=== PATIENT | male | born 2000 | race Two or more races ===

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

== ENCOUNTER 2020-01-13 19:08 | Emergency (ER) | payer OTHER ==
--- NOTE | 2020-01-13 19:53 | ER Document Report ---
HPI - HPI Patient complains to provider of: Choking on food Time Seen by Provider: 01/13/20 19:45 Onset: This evening Onset/Duration: Gone Quality of pain: Achy Severity: None Pain Level: Denies Context: 19-year-old male presented to ED for choking on his food. He states every time he tries to drink something he has to spit it out. He states he does have a medical history of a left arm fracture. He does not smoke drink or use any drugs and he lives with his mother. Patient is able to swallow whole glass of water with no difficulty Associated Symptoms: Other - Patient was choking on food at home. He is able to speak freely no trouble swallowing a glass of water. Exacerbated by: Denies Relieved by: Denies Similar symptoms previously: Yes Recently seen / treated by doctor: No - ROS ROS below otherwise negative: Yes - CONSTITUTIONAL Constitutional: DENIES: Fever, Chills - EENT EENT: DENIES: Sore Throat, Ear Pain, Nasal Drainage-Clear, Nasal Drainage- Purulent, Congestion, Eye problems Notes: Difficulty swallowing at home. He drank water without difficulty in the emergency room. - NEURO Neurology: DENIES: Headache, Weakness, Vision blurred, Dizzinesss / Vertigo - CARDIOVASCULAR Cardiovascular: DENIES: Chest pain - RESPIRATORY Respiratory: DENIES: Trouble Breathing, Coughing - GASTROINTESTINAL Gastrointestinal: DENIES: Abdominal Pain, Nausea, Patient vomiting, Diarrhea, Constipation, Black / Bloody Stools - URINARY Urinary: DENIES: Dysuria, Urgency, Frequency - REPRODUCTIVE Reproductive: DENIES: : - MUSCULOSKELETAL Musculoskeletal: DENIES: Extremity pain, Back Pain, Neck Pain, Swelling - DERM Skin Color: Normal Skin Problems: None Past Medical History - General Information source: Patient - Social History Smoking Status: Never Smoker Frequency of alcohol use: None Drug Abuse: None Lives with: Family Family History: None Patient has suicidal ideation: No Patient has homicidal ideation: No - Past Medical History Cardiac Medical History: Reports: None Pulmonary Medical History: Reports: None EENT Medical History: Reports: None Neurological Medical History: Reports: None Endocrine Medical History: Reports: None Renal/ Medical History: Reports: None Malignancy Medical History: Reports None GI Medical History: Reports: None Musculoskeletal Medical History: Reports None Skin Medical History: Reports None Psychiatric Medical History: Reports: None Traumatic Medical History: Reports: None Infectious Medical History: Reports: None Surgical Hx: Negative Past Surgical History: Reports: None - Immunizations Immunizations up to date: Yes Hx Diphtheria, Pertussis, Tetanus Vaccination: Yes Vertical Provider Document - CONSTITUTIONAL Agree With Documented VS: Yes Exam Limitations: No Limitations General Appearance: WD/WN, No Apparent Distress - INFECTION CONTROL TRAVEL OUTSIDE OF THE [place] IN LAST 30 DAYS: No - HEENT HEENT: Atraumatic, Normocephalic, PERRLA. negative: Normal ENT Exam - Enlarged tonsils otherwise negative assessment, Pharyngeal Exudate, Pharyngeal Tenderness, Pharyngeal Erythema, Tympanic Membrane Red, Tympanic Membrane Bulging - NECK Neck: Normal Inspection - RESPIRATORY Respiratory: Breath Sounds Normal - CARDIOVASCULAR Cardiovascular: Regular Rate, Regular Rhythm, No Murmur - GI/ABDOMEN Gastrointestinal: Abdomen Soft, Abdomen Non-Tender, Abdomen Tender, Normal Bowel Sounds - MUSCULOSKELETAL/EXTREMETIES Musculoskeletal/Extremeties: MAEW, FROM, Non-Tender - NEURO Level of Consciousness: Awake, Alert, Appropriate Motor/Sensory: No Motor Deficit, No Sensory Deficit, No Pronator Drift Deep Tendon Reflexes: 2+ - DERM Integumentary: No Rash Course - Re-evaluation Re-evalutation: 01/13/20 22:20 Patient was able to swallow whole glass of water and swallow a quick response with no difficulty. He states he was no longer having any pain or discomfort. He states he is choked on food before. I did instruct him to follow-up with primary care and/or ENT. He did verbalize understanding and agreement treatment plan and patient was discharged home. - Vital Signs Vital signs: Temp Pulse Resp BP Pulse Ox 98.5 F 103 H 18 113/74 99 01/13/20 19:17 01/13/20 19:17 01/13/20 19:17 01/13/20 19:17 01/13/20 19:17 Discharge - Discharge Clinical Impression: Choking on food at home Condition: Stable Disposition: HOME, SELF-CARE Additional Instructions: You were seen today for choking on food at home You are able to swallow water with no difficulty at this time. Trouble swallowing or speaking at this time. Please use some ice pops or ice water tonight to soothe your throat. Follow-up with ENT as we discussed. FOLLOW-UP CARE: If you have been referred to a physician for follow-up care, call the physicians office for an appointment as you were instructed or within the next two days. If you experience worsening or a significant change in your symptoms, notify the physician immediately or return to the Emergency Department at any time for re-evaluation. Referrals: MAGGIE CHAWLA MD [ACTIVE STAFF] - Follow up as needed
[2020-01-13 19:55] VITALS: BP 113/70
== END 2020-01-13 19:55 | disposition home or self-care (01) ==
LOC: ER 19:08
DX: T17.928A Food in respiratory tract, part unspecified causing other injury, initial encounter (principal); X58.XXXA Exposure to other specified factors, initial encounter
CPT/HCPCS: 99283